=== PATIENT | male | born 1970 | race African-American/Black ===

== ENCOUNTER 2018-10-23 17:31 | Emergency (ER) | payer OTHER ==
[2018-10-23 17:37] VITALS: BMI 38.2
[2018-10-23] MEDS ORDERED: amLODIPine BESYLATE 10 MG TABLET (FP) PO ONE (17:37)
--- NOTE | 2018-10-23 17:37 | PDOC ---
Rapid Medical Evaluation Time Seen by Provider: 10/23/18 17:33 Medical Evaluation: Allergies Allergy/AdvReac Type Severity Reaction Status Date / Time No Known Allergies Allergy Verified 10/23/18 17:33 10/23/18 17:33 I have performed a brief in-person evaluation of this patient. The patient presents with a chief complaint of: b/l conjunctival redness w/ crusting x 4 days. No sick contacts. H/o ROSEMARY, HTN, smoker Pertinent physical exam findings: BP 204/117, (non-compliant w/ norvasc), b/l conjunctival erythema, L>R I have ordered the following: dose of norvasc The patient will proceed to the ED for further evaluation 10/23/18 17:38 Discharge Disposition - Diagnosis Conjunctivitis Qualifiers: Conjunctivitis type: acute Acute conjunctivitis type: unspecified Laterality: bilateral Qualified Code(s): H10.33 - Unspecified acute conjunctivitis, bilateral - Referrals - Patient Instructions - Post Discharge Activity
[2018-10-23] MEDS ORDERED: amLODIPine BESYLATE 5 MG TABLET (FP) ONE (17:56)
--- NOTE | 2018-10-23 18:46 | PDOC ---
History of Present Illness - General Chief Complaint: Eye Problem Stated Complaint: LEFT EYE PAIN Time Seen by Provider: 10/23/18 17:33 History Source: Patient Exam Limitations: No Limitations Past History - Travel Traveled outside of the country in the last 30 days: No Close contact w/someone who was outside of country & ill: No - Past Medical History Allergies/Adverse Reactions: Allergies Allergy/AdvReac Type Severity Reaction Status Date / Time No Known Allergies Allergy Verified 10/23/18 17:33 Home Medications: Ambulatory Orders Amlodipine Besylate [Norvasc -] 10 mg PO DAILY #0 tablet 09/26/11 Labetalol HCl 100 mg PO BID #0 tablet 09/26/11 Amlodipine Besylate [Norvasc -] 10 mg PO DAILY #7 tablet 10/23/18 Anemia: No Asthma: No Cancer: No COPD: No HTN: Yes Other medical history: SLEEP APENA - Surgical History Abdominal Surgery: No Appendectomy: No Orthopedic Surgery: Yes - Immunization History Immunization Up to Date: Yes - Suicide/Smoking/Psychosocial Hx Smoking Status: Yes Smoking History: Current every day smoker Have you smoked in the past 12 months: Yes Number of Cigarettes Smoked Daily: 1 Information on smoking cessation initiated: No Hx Alcohol Use: No Drug/Substance Use Hx: No Substance Use Type: Marijuana Review of Systems - Review of Systems Able to Perform ROS?: Yes Is the patient limited Malay proficient: No Constitutional: Yes: Weight Stable. No: Chills, Diaphoresis, Fever, Loss of Appetite, Malaise, Weakness HEENTM: Yes: See HPI, Tearing, Nose Congestion (clear rhinorrhea/allergy sx), Other (L eye redness and drainage). No: Eye Pain, Blurred Vision, Recent change in vision, Double Vision, Cataracts, Ear Pain, Ocular Prothesis, Ear Discharge, Tinnitus, Nose Bleeding, Throat Pain, Throat Swelling, Difficulty Swallowing Respiratory: No: Cough, Orthopnea, Shortness of Breath, Wheezing Cardiac (ROS): No: Chest Pain, Edema, Irregular Heart Rate, Lightheadedness, Palpitations, Syncope, Chest Tightness ABD/GI: No: Constipated, Diarrhea, Nausea, Poor Appetite, Poor Fluid Intake, Vomiting : No: Burning, Frequency, Pain, Urgency Musculoskeletal: No: Back Pain, Joint Pain, Muscle Pain, Muscle Weakness Integumentary: Yes: Other (mild edema around L eye). No: Rash Neurological: No: Headache, Numbness, Paresthesia, Weakness, Unsteady Gait, Dizziness Psychiatric: No: Sleep Pattern Change, Change in Appetite Endocrine: No: Increased Urine, Change in Weight Hematologic/Lymphatic: No: Anemia, Blood Clots, Easy Bleeding, Easy Bruising All Other Systems: Reviewed and Negative *Physical Exam - Vital Signs Last Vital Signs Temp Pulse Resp BP Pulse Ox 98.3 F 89 18 204/117 H 99 10/23/18 17:34 10/23/18 17:34 10/23/18 17:34 10/23/18 17:34 10/23/18 17:34 - Physical Exam Comments: HTN 204/117 on arrival (178/129 on exam), pt afebrile. Pt in NAD. Morbidly obese body habitus. Pt alert and oriented x3. quality assurance supervisor trim generally intact, muscular strength and sensation intact. No midline spinal tenderness, step-offs, or crepitus. Head normocephalic, atraumatic. Eyes PERRLA, EOMI and without tenderness with eye movement. L eye erythema with yellowish discharge, a stye on the inner upper lid, and mild edema around the top eyelid. No tenderness to palpation of sinuses or around eyes. Vision 20/100 both eyes. Oropharynx without erythema or exudates, no LAD b/l. Boggy nasal congestion with no active rhinorrhea. Hearing intact. Clear heart sounds, S1/S2, no JVD, b/l pedal edema, or heart murmur. Clear lung sounds, no respiratory distress, wheezes, crackles, or accessory muscle use. No abdominal or CVA tenderness to palpation, no rebound, no guarding. Abdomen soft, non-distended, and with normoactive bowel sounds. Skin without jaundice or rash. 10/24/18 19:11 10/24/18 19:48 Vital Signs - Vital Signs #1 Blood Pressure: 178/129 MAP: 145 BP Location: Right Arm Blood Pressure Position: Sitting Pulse Rate: 89 Respiratory Rate: 14 Medical Decision Making - Medical Decision Making Pt was seen at bedside, also will be seen by attending Dr. Ford. Pt presenting with complaints of L eye redness and drainage x4 days. Pt states he has had recent allergic symptoms (clear rhinorrhea, itchy eyes) and has been rubbing his nose and his eyes. He has a history of allergic rhinitis and frequently gets styes in his eyes b/l. Pt denies any pain in the eye and says his vision is as usual. He has not been taking his BP medication or seen his PCP in over 2 years. Pt denies any fevers/chills, headache, vision changes, syncope, chest pain, palpitations, SOB, nausea/vomiting, abdominal pain, urinary symptoms, diarrhea/constipation, or leg swelling. Appears to be likely bacterial conjunctivitis (yellowish discharge) with stye on the L eye. Pt likely spreading bacteria to stye on eye from his nose with his allergic symptoms. No fever or pain with EOM to suggest preseptal cellulitis. Conjunctivitis could also be allergic or viral in nature, but will treat due to unilateral redness and discharge. Provided 10 mg PO amlodipine for improvement of HTN. Will continue to reassess pt and monitor for symptomatic improvement. Pt BP improved to 178/129 after 10 mg amlodipine. Pt continues to deny any HTN emergency symptoms (vision changes, urinary changes, chest pain, SOB). Fluorescein stain of L eye shows no corneal abrasion. Applied TMP/polymyxin drops and provided it to the pt, with instructions to continue every 3-4 hours x7 days. Also provided 10 mg PO amlodipine x7 days until pt can see PCP. Pt can be discharged to home with follow-up. Pt advised to follow-up with PCP in 1-2 days and has been referred to Dr. Washington (ophthalmology). Strict return precautions provided with pt understanding. 10/24/18 19:23 10/24/18 19:49 *DC/Admit/Observation/Transfer Diagnosis at time of Disposition: Conjunctivitis Qualifiers: Conjunctivitis type: acute Acute conjunctivitis type: unspecified Laterality: bilateral Qualified Code(s): H10.33 - Unspecified acute conjunctivitis, bilateral - Discharge Dispostion Disposition: HOME Condition at time of disposition: Improved Decision to Admit order: No - Prescriptions Prescriptions: Amlodipine Besylate [Norvasc -] 10 mg PO DAILY #7 tablet - Referrals Referrals: Catherine Perez [Primary Care Provider] - Liane Washington MD [Staff Physician] - - Patient Instructions Printed Discharge Instructions: DI for Conjunctivitis Additional Instructions: You were seen in the ER today for eye discharge. We have provided eye antibiotics. Please take these in the affected eye every 3-4 hours for 7 days. I have also sent your BP medication to your pharmacy. Please take this as prescribed. Please follow-up with your primary care doctor and the equipment records supervisor within 1- 2 days to discuss your visit and make sure your symptoms have improved. Please return to the ER if you have any worsening pain, difficulty with vision or moving your eyes, development of fevers or chills, loss of consciousness, inability to tolerate food or fluids, or any other concerns. - Post Discharge Activity Forms/Work/School Notes: Back to Work
[2018-10-23 18:48] VITALS: TEMP 98.1
[2018-10-23] MEDS ORDERED: POLYMYXIN B SULFATE/TMP 10 ML OPHTHALMIC SOLUTION OD ONE (18:49)
--- NOTE | 2018-10-23 19:46 | PDOC ---
Documentation entered by Asif Delcid SCRIBE, acting as scribe for Lilly Vincent DO. Lilly Vincent DO: This documentation has been prepared by the Bhavin ashton Daniel, SCRIBE, under my direction and personally reviewed by me in its entirety. I confirm that the documentation accurately reflects all work , treatment, procedures, and medical decision making performed by me. Attending Attestation - Resident Resident Name: Heavenly Jones - ED Attending Attestation I have performed the following: I have examined & evaluated the patient, The case was reviewed & discussed with the resident, I agree w/resident's findings & plan - HPI HPI: 10/23/18 19:29 The patient is a 48 year old male with a past medical history of obstructive sleep apnea and HTN here today for evaluation of redness and discharge. The patient reports that he has been having left eye redness and discharge recently and notes that when he wakes up in the morning his eyelids are stuck together from the discharge. Patient also reports that he hasnt seen his primary in a year and has not been taking his amlodipine. Patient denies headache, lightheadedness. Denies fever, chills. Denies chest pain, shortness of breath. Denies nausea, vomiting, diarrhea, abdominal pain. Denies eye pain, vision loss. Allergies: NKA PCP: Maya Perez - Physicial Exam PE: 10/23/18 19:42 Agree with resident's physical exam. - Medical Decision Making 10/23/18 19:44 48-year-old male complaining of left eye redness and irritation as well as discharge Patient was found incidentally to have elevated blood pressure on arrival which has been asymptomatic Eye exam does not reveal corneal abrasion Visual acuity grossly intact Patient agrees to take medication as prescribed and to follow-up with both ophthalmology and primary care He was advised that should he develop headache shortness of breath or chest pain to return immediately to the emergency department and not wait for his appointment.
[2018-10-23 19:55] VITALS: BP 178/129; PULSE 89
== END 2018-10-23 20:15 | disposition home or self-care (01) ==
LOC: JER 17:31
DX: H10.33 Unspecified acute conjunctivitis, bilateral (principal); F17.210 Nicotine dependence, cigarettes, uncomplicated; I10 Essential (primary) hypertension; G47.30 Sleep apnea, unspecified
CPT/HCPCS: 99282-25

== ENCOUNTER 2019-12-17 01:22 | Emergency (ER) | payer OTHER ==
[2019-12-17 01:41] VITALS: TEMP 98.5; BMI 38.2
--- NOTE | 2019-12-17 02:08 | PDOC ---
*Physical Exam - Vital Signs Last Vital Signs Temp Pulse Resp BP Pulse Ox 98.5 F 99 H 18 166/105 H 99 12/17/19 01:28 12/17/19 01:28 12/17/19 01:28 12/17/19 01:28 12/17/19 01:28 Medical Decision Making - Medical Decision Making 12/17/19 02:08 Patient seen by the advanced practice provider under my supervision. Ancillary testing reviewed as necessary. I agree with plan as outlined by the advanced practice provider. Discharge - Discharge Information Problems reviewed: Yes Clinical Impression/Diagnosis: Conjunctivitis Qualifiers: Conjunctivitis type: acute Acute conjunctivitis type: bacterial Laterality: left Qualified Code(s): H10.32 - Unspecified acute conjunctivitis, left eye Disposition: HOME - Additional Discharge Information Prescriptions: Ofloxacin 0.3% Ophth Soln [Ocuflox -] 1 drop OP Q4H #1 bottle - Follow up/Referral Referrals: Bakari Joyner MD [Staff Physician] - Call tomorrow Sia Givens MD [Primary Care Provider] - Lisbet Cardona MD [Staff Physician] - Call tomorrow - Patient Discharge Instructions Patient Printed Discharge Instructions: Conjunctivitis Additional Instructions: Instill eyedrops every 4 hours for the next 7 days. It is important that you see the eye doctor. A referral was given to you return to the emergency room for any worsening symptoms - Post Discharge Activity Work/Back to School Note: Back to Work
--- NOTE | 2019-12-17 02:23 | PDOC ---
History of Present Illness - General Chief Complaint: Eye Problem Stated Complaint: EYE PROBLEM Time Seen by Provider: 12/17/19 01:55 History Source: Patient - History of Present Illness Initial Comments: 12/17/19 02:27 49 year old male left eye redness with drainage for the last 4 days. reports mucousy drainage from left eye with matted lashes. no vision loss/ changes Patient has a history of hypertension patient reports that he does not take his meds. 12/17/19 03:29Denies chest pain, nausea, vomiting, diaphoresis Past History - Medical History Allergies/Adverse Reactions: Allergies Allergy/AdvReac Type Severity Reaction Status Date / Time No Known Allergies Allergy Verified 12/17/19 01:31 Home Medications: Ambulatory Orders Amlodipine Besylate [Norvasc -] 10 mg PO DAILY #0 tablet 09/26/11 Labetalol HCl 100 mg PO BID #0 tablet 09/26/11 Amlodipine Besylate [Norvasc -] 10 mg PO DAILY #7 tablet 10/23/18 Ofloxacin 0.3% Ophth Soln [Ocuflox -] 1 drop OP Q4H #1 bottle 12/17/19 Anemia: No Asthma: No Cancer: No COPD: No HTN: Yes Other medical history: sleep apnea - Surgical History Abdominal Surgery: No Appendectomy: No Orthopedic Surgery: Yes - Immunization History Immunization Up to Date: Yes - Psycho-Social/Smoking History Smoking Status: Yes Smoking History: Current every day smoker Have you smoked in the past 12 months: Yes Number of Cigarettes Smoked Daily: 1 Information on smoking cessation initiated: No - Substance Abuse Hx (Audit-C & DAST Scrn) How often the patient has a drink containing alcohol: Never Score: In Men: 4 or > Positive; In Women: 3 or > Positive: 0 Screen Result (Pos requires Nsg. Audit-10AR): Negative *Physical Exam - Vital Signs Last Vital Signs Temp Pulse Resp BP Pulse Ox 98.5 F 99 H 18 166/105 H 99 12/17/19 01:28 12/17/19 01:28 12/17/19 01:28 12/17/19 01:28 12/17/19 01:28 - Physical Exam General Appearance: Yes: Appropriately Dressed HEENT: positive: Other (left eye injected with matted lashes and yellow drainage. snellen 20/20 left eye. no periorbital tenderness) Musculoskeletal: positive: Normal Inspection Extremity: positive: Normal Capillary Refill Integumentary: positive: Normal Color, Dry, Warm Neurologic: positive: Fully Oriented, Alert, Normal Mood/Affect Medical Decision Making - Medical Decision Making 12/17/19 03:31 A: conjunctivitis P: ofloxacin outpatient ophthalmology follow up. Discharge - Discharge Information Problems reviewed: Yes Clinical Impression/Diagnosis: Conjunctivitis Qualifiers: Conjunctivitis type: acute Acute conjunctivitis type: bacterial Laterality: left Qualified Code(s): H10.32 - Unspecified acute conjunctivitis, left eye Condition: Stable Disposition: HOME - Additional Discharge Information Prescriptions: Ofloxacin 0.3% Ophth Soln [Ocuflox -] 1 drop OP Q4H #1 bottle - Follow up/Referral Referrals: Sia Givens MD [Primary Care Provider] - Bakari Joyner MD [Staff Physician] - Call tomorrow Lisbet Cardona MD [Staff Physician] - Call tomorrow - Patient Discharge Instructions Patient Printed Discharge Instructions: Conjunctivitis Additional Instructions: Instill eyedrops every 4 hours for the next 7 days. It is important that you see the eye doctor. A referral was given to you return to the emergency room for any worsening symptoms - Post Discharge Activity Work/Back to School Note: Back to Work
[2019-12-17 02:57] VITALS: BP 154/92; PULSE 86
== END 2019-12-17 02:57 | disposition home or self-care (01) ==
LOC: JER 01:22
DX: H10.32 Unspecified acute conjunctivitis, left eye (principal)
CPT/HCPCS: 99283-25

== ENCOUNTER 2021-02-28 10:21 | Emergency (ER) | payer OTHER ==
[2021-02-28 10:34] VITALS: BMI 39.9
[2021-02-28 10:37] VITALS: TEMP 98.3
[2021-02-28] MEDS ORDERED: ESMOLOL 2500 MG/250 ML 2,500,000 MCG/250 ML INFUS.BAG IVPB SCH (10:45)
[2021-02-28] MEDS ORDERED: LABETALOL HCL 5 MG/1 ML (100MG/20 ML VIAL) IVPUSH ONE (10:49)
[2021-02-28] MEDS ORDERED: LABETALOL HCL 5 MG/1 ML (100MG/20 ML VIAL) ONE (10:49)
[2021-02-28 10:59] LABS: BASO % 0.7 % (0-2.0); EOS % 1.1 % (0-4.5); HEMATOCRIT 44.2 % (35.4-49); HEMOGLOBIN 15.5 GM/dL (11.7-16.9); LYMPH % 16.9 % (8-40); MCH 33.2 pg (25.7-33.7); MCHC 35.1 g/dl (32.0-35.9); MEAN CELL VOLUME 94.8 fl (80-96); MEAN PLT VOLUME 9.8 fl (7.5-11.1); MONO % 6.2 % (3.8-10.2); NEUT % 75.1 % (42.8-82.8); PLATELET COUNT 162 10^3/uL (134-434); RBC 4.66 M/mm3 (4.00-5.60); RDW 14.1 % (11.9-15.9)
[2021-02-28 11:06] LABS: INR 0.94 (0.83-1.09); PROTHROMBIN TIME (PATIENT) 11.6 SEC (9.7-13.0)
[2021-02-28 11:09] LABS: ACTIVATED PTT 32.1 SECONDS (25.2-36.5)
[2021-02-28 11:23] LABS: CHLORIDE 105 mmol/L (98-107); SODIUM 142 mmol/L (136-145)
[2021-02-28 11:25] LABS: ALBUMIN 4.1 g/dl (3.4-5.0); CALCIUM 8.7 mg/dL (8.5-10.1); CO2 30 mmol/L (21-32); GLUCOSE,RANDOM 104 mg/dL (74-106)
[2021-02-28 11:26] LABS: BLOOD UREA NITROGEN 13.3 mg/dL (7-18)
[2021-02-28 11:28] LABS: CREATININE 1.6 mg/dL (0.55-1.3)
[2021-02-28 11:29] LABS: SGOT/AST 24 U/L (15-37); SGPT/ALT 33 U/L (13-61)
[2021-02-28] MEDS ORDERED: ACETAMINOPHEN 1000 MG/100 ML VIAL (NON FORMULARY) IVPB ONE (11:29)
[2021-02-28] MEDS ORDERED: ONDANSETRON 4 MG/2 ML VIAL IVPUSH ONE (11:29)
[2021-02-28] MEDS ORDERED: morphine CARPU-JECT 4 MG/1 ML DISP.SYRIN IVPUSH ONE (11:29)
[2021-02-28 11:30] LABS: BILIRUBIN,TOTAL 0.6 mg/dL (0.2-1); TOT PROT 7.9 g/dl (6.4-8.2)
[2021-02-28] MEDS ORDERED: SODIUM CHLORIDE 0.9% 500 ML INFUS.BAG IV ONE (11:30)
[2021-02-28 11:31] LABS: ALK PHOS 93 U/L (45-117)
[2021-02-28] MEDS ORDERED: ACETAMINOPHEN INJECTION 100 ML IVPB ONE (11:35)
[2021-02-28] MEDS ORDERED: ONDANSETRON 4 MG/2 ML VIAL ONE (11:35)
[2021-02-28] MEDS ORDERED: MORPHINE SULFATE 2 MG/ML VIAL ONE (11:35)
[2021-02-28 11:56] LABS: ANION GAP 6 MMOL/L (8-16)
[2021-02-28] MEDS: KCL 10 MEQ IVPB 10 MEQ/100 ML INFUS.BAG IVPB SCH ×3 (12:00→13:50)
[2021-02-28 12:11] VITALS: PULSE 69
[2021-02-28 12:17] LABS: MAGNESIUM 2.3 mg/dL (1.8-2.4)
[2021-02-28] MEDS ORDERED: KCL 10 MEQ IVPB 10 MEQ/100 ML INFUS.BAG IVPB ONE (12:38)
[2021-02-28] MEDS ORDERED: POTASSIUM CHLORIDE TABS 20 MEQ TABLET.ER (FP) PO ONE ×2 (12:39→13:04)
[2021-02-28] MEDS ORDERED: LIDOCAINE 5% TOPICAL PATCH TP ONE (13:50)
[2021-02-28] MEDS ORDERED: LIDOCAINE 5% TOPICAL PATCH ONE (13:53)
[2021-02-28 14:53] VITALS: BP 155/102
[2021-02-28 15:20] LABS: CALCIUM 8.5 mg/dL (8.5-10.1)
[2021-02-28 15:21] LABS: BLOOD UREA NITROGEN 11.7 mg/dL (7-18)
[2021-02-28 15:24] LABS: CREATININE 1.5 mg/dL (0.55-1.3)
[2021-02-28] MEDS ORDERED: LIDOCAINE PATCH REMOVAL MC SCH (22:00)
== END 2021-02-28 15:35 | disposition home or self-care (01) ==
LOC: JER 10:21
PROC: 3E033NZ Introduction of Analgesics, Hypnotics, Sedatives into Peripheral Vein, Percutaneous Approach (ICD-10-PCS; principal; 2021-02-28)
PROC: 3E033GC Introduction of Other Therapeutic Substance into Peripheral Vein, Percutaneous Approach (ICD-10-PCS; 2021-02-28)
PROC: 3E033GC Introduction of Other Therapeutic Substance into Peripheral Vein, Percutaneous Approach (ICD-10-PCS; 2021-02-28)
PROC: 3E0337Z Introduction of Electrolytic and Water Balance Substance into Peripheral Vein, Percutaneous Approach (ICD-10-PCS; 2021-02-28)
PROC: 3E0337Z Introduction of Electrolytic and Water Balance Substance into Peripheral Vein, Percutaneous Approach (ICD-10-PCS; 2021-02-28)
DX: M54.42 Lumbago with sciatica, left side (principal)
CPT/HCPCS: 36415; 71275-TC; 74174-TC; 80048; 80053; 82550; 82553; 83605; 83735; 84484; 85025; 85379; 85610; 85730; 93005; 93010; 96361; 96374; 96375; 99285-25; C9803; J0131; Q9967; U0003; U0005

== ENCOUNTER 2021-10-05 20:42 | Emergency (ER) | payer OTHER ==
[2021-10-05 21:20] VITALS: BP 179/99; PULSE 84; TEMP 98.1; BMI 38.2
[2021-10-05] MEDS ORDERED: CYCLOBENZAPRINE HCL 10 MG TABLET (FP) PO ONE (22:11)
[2021-10-05] MEDS ORDERED: LIDOCAINE 5% TOPICAL PATCH TP ONE (22:11)
[2021-10-05] MEDS ORDERED: KETOROLAC TROMETHAMINE 30 MG/1 ML VIAL IM ONE (22:11)
[2021-10-05] MEDS ORDERED: LIDOCAINE 5% TOPICAL PATCH ONE (23:01)
[2021-10-05] MEDS ORDERED: KETOROLAC TROMETHAMINE 30 MG/1 ML VIAL ONE (23:01)
[2021-10-05] MEDS ORDERED: CYCLOBENZAPRINE HCL 10 MG TABLET (FP) ONE (23:01)
[2021-10-06] MEDS ORDERED: LIDOCAINE PATCH REMOVAL MC ONE (22:00)
== END 2021-10-05 23:12 | disposition home or self-care (01) ==
LOC: JER 20:42
PROC: 3E023GC Introduction of Other Therapeutic Substance into Muscle, Percutaneous Approach (ICD-10-PCS; principal; 2021-10-05)
DX: M25.462 Effusion, left knee (principal)
CPT/HCPCS: 73562-TC-LT-FY; 99284-25

== ENCOUNTER 2022-09-10 18:21 | Emergency (ER) | payer OTHER ==
[2022-09-10 18:30] VITALS: BP 168/112; PULSE 95; RESP 18; TEMP 98; BMI 38.2
== END 2022-09-10 19:44 | disposition left against medical advice (07) ==
LOC: JER 18:21
DX: R00.2 Palpitations (principal)
CPT/HCPCS: 93005; 93010; 99283-25

== ENCOUNTER 2024-05-21 15:51 | Emergency (ER) | payer SELFPAY ==
[2024-05-21 16:01] VITALS: BMI 34.7
[2024-05-21] MEDS ORDERED: amLODIPine BESYLATE 10 MG TABLET (FP) ONE (16:34)
[2024-05-21] MEDS ORDERED: LABETALOL HCL 200 MG TABLET (FP) ONE (16:34)
[2024-05-21] MEDS: amLODIPine BESYLATE 10 MG TABLET (FP) PO ONE (16:37)
[2024-05-21] MEDS: LABETALOL HCL 200 MG TABLET (FP) PO ONE (16:37)
[2024-05-21 17:13] VITALS: BP 150/118
[2024-05-21 17:31] VITALS: PULSE 61; RESP 20; TEMP 98.1
== END 2024-05-21 17:54 | disposition home or self-care (01) ==
LOC: JER 15:51
DX: I10 Essential (primary) hypertension (principal)
CPT/HCPCS: 99283-25